=== PATIENT | male | born 1995 | race African-American/Black ===

== ENCOUNTER 2016-08-28 18:40 | Emergency (ER) | payer OTHER ==
[~2016-08-28] VITALS: Ht 170.2 cm; Wt 85.8 kg
[2016-08-28 21:53] VITALS: BP 132/88
== END 2016-08-28 21:54 | disposition home or self-care (01) ==
LOC: EME 18:40
DX: R51 Headache (principal); R55 Syncope and collapse; M54.9 Dorsalgia, unspecified; F17.200 Nicotine dependence, unspecified, uncomplicated
CPT/HCPCS: 70450; 99281; 99284

== ENCOUNTER 2016-10-05 20:28 | Emergency (ER) | payer OTHER ==
[~2016-10-05] VITALS: Ht 170.2 cm; Wt 88.9 kg
[2016-10-05 22:35] LABS: EOSINOPHIL (%) 2.7 % (0-5); EOSINOPHIL COUNT 0.2 K/uL (0-0.3); HEMATOCRIT 46.4 % (38.0-50.0); IMMATURE GRANULOCYTE (%) 0.2 % (0.0-0.7); INSTRUMENT ABS NEUTROPHIL CT 2.2 K/uL; LYMPHOCYTE COUNT 2.6 K/uL (1.0-2.8); MCH 29.9 PG (29.0-34.0); MCHC 34.5 G/DL (30.0-36.0); MCV 86.7 FL (86-99); MEAN PLAT.VOLUME 9.9 uM^3 (9.0-12.4); MONOCYTE (%) 9.5 % (3-12); MONOCYTE COUNT 0.5 K/uL (0-0.8); NEUTROPHIL (%) 39.4 % (45-76); NEUTROPHIL COUNT 2.2 K/uL (1.8-6.4); PLATELET COUNT 237 K/uL (156-360); RBC DIS.WIDTH-CV 12.5 % (11.8-14.6); RBC DIS.WIDTH-SD 39.7 % (39-53); RED BLOOD COUNT 5.35 M/uL (4.00-5.50); WHITE BLOOD COUNT 5.5 K/uL (4.1-10.2)
[2016-10-05 22:49] LABS: CHLORIDE 105 mEq/L (99-109); POTASSIUM 4.1 mEq/L (3.7-5.4); SODIUM 138 mEq/L (136-147)
[2016-10-05 22:51] LABS: GLUCOSE 98 mg/dL (70-99)
[2016-10-05 22:53] LABS: ANION GAP 9 MEQ/L (2-14); TOTAL BILIRUBIN 0.4 mg/dL (0.0-1.0)
[2016-10-05 22:55] LABS: ALKALINE PHOSPHATASE 74 IU/L (3-129); GFR ESTIMATE (CALCULATED) > 59 mL/min/
[2016-10-05 22:56] LABS: UREA NITROGEN (BUN) 14 mg/dL (9-23)
[2016-10-05 23:40] VITALS: BP 120/56
== END 2016-10-05 23:41 | disposition home or self-care (01) ==
LOC: EME 20:28
PROVIDERS: Physician Assistant
DX: R07.89 Other chest pain (principal); R51 Headache; Z87.891 Personal history of nicotine dependence
CPT/HCPCS: 71020; 80053; 85025; 93005; 99281; 99284

== ENCOUNTER 2016-10-08 08:17 | Emergency (ER) | payer OTHER ==
[~2016-10-08] VITALS: Ht 172.7 cm; Wt 89.3 kg
[2016-10-08 09:11] LABS: EOSINOPHIL (%) 2.3 % (0-5); EOSINOPHIL COUNT 0.1 K/uL (0-0.3); HEMATOCRIT 46.8 % (38.0-50.0); INSTRUMENT ABS NEUTROPHIL CT 1.7 K/uL; LYMPHOCYTE COUNT 1.6 K/uL (1.0-2.8); MCH 29.9 PG (29.0-34.0); MEAN PLAT.VOLUME 10.1 uM^3 (9.0-12.4); MONOCYTE (%) 12.6 % (3-12); MONOCYTE COUNT 0.5 K/uL (0-0.8); NEUTROPHIL (%) 44.5 % (45-76); NEUTROPHIL COUNT 1.7 K/uL (1.8-6.4); PLATELET COUNT 215 K/uL (156-360); RBC DIS.WIDTH-CV 12.4 % (11.8-14.6); RBC DIS.WIDTH-SD 40.2 % (39-53); RED BLOOD COUNT 5.32 M/uL (4.00-5.50); WHITE BLOOD COUNT 3.9 K/uL (4.1-10.2)
[2016-10-08 09:21] LABS: D-DIMER ELISA 0.18 mg/L FEU (< 0.57)
[2016-10-08 09:22] LABS: CHLORIDE 106 mEq/L (99-109); POTASSIUM 4.3 mEq/L (3.7-5.4); SODIUM 138 mEq/L (136-147)
[2016-10-08 09:23] LABS: GLUCOSE 87 mg/dL (70-99)
[2016-10-08 09:25] LABS: ANION GAP 8 MEQ/L (2-14)
[2016-10-08 09:27] LABS: GFR ESTIMATE (CALCULATED) > 59 mL/min/
[2016-10-08 09:28] LABS: UREA NITROGEN (BUN) 10 mg/dL (9-23)
[2016-10-08 09:30] LABS: TROP-I INTERPRETATION NEGATIVE; TROPONIN-I < 0.01 ng/mL (0.0-0.30)
[2016-10-08 11:25] VITALS: BP 108/67
== END 2016-10-08 11:27 | disposition home or self-care (01) ==
LOC: EME 08:17
PROVIDERS: Emergency Medicine
DX: R07.89 Other chest pain (principal); Z87.891 Personal history of nicotine dependence
CPT/HCPCS: 71020; 80048; 84484; 85025; 85379; 93005; 99281; 99284